=== PATIENT | male | born 1950 | race Caucasian/White ===

== ENCOUNTER → 2024-02-29 11:50 | Outpatient (REF) | payer MEDICARE, OTHER, SELFPAY ==
[2024-02-29 12:35] LABS: % Basophils 1.2 % (0-2); % Eosinophils 6.2 % (0-6); % Immature Granulocytes 0.2 % (0-0.5); % Lymphocytes 16.8 % (20.5-51.1); % Monocytes 7.7 % (1.7-9.3); % Neutrophils 67.9 % (42.2-75.2); Absolute Basophils 0.1 10^3/uL (0-0.2); Absolute Eosinophils 0.5 10^3/uL (0-0.7); Absolute Lymphocytes 1.4 10^3/uL (1.2-3.4); Absolute Monocytes 0.6 10^3/uL (0.1-0.6); Absolute Neutrophils 5.6 10^3/uL (1.4-6.5); Hematocrit 37.5 % (39.0-52.0); Hemoglobin 12.6 g/dL (13.0-18.0); Mean Corp Hgb Conc. 33.6 g/dL (33.0-37.0); Mean Corpuscular Volume 86.4 fL (80.0-94.0); Mean Platelet Volume 11.3 fL (7.4-10.4); Nucleated Red Blood Cells % 0 % (-); Platelet Count 261 10^3/uL (130-400); Red Blood Cell Count 4.34 10^6/uL (4.70-6.10); Red Cell Dist. Width 13.1 % (11.5-14.5); White Blood Cell Count 8.3 10^3/uL (4.8-10.8)
[2024-02-29 12:52] LABS: Urine Albumin Negative (Neg - Trace); Urine Bilirubin Negative (Negative); Urine Character Clear (Clear); Urine Color Yellow; Urine Glucose Negative (Negative); Urine Ketone 2+ (Negative); Urine Leukocyte Negative (Negative); Urine Nitrite Negative (Negative); Urine Occult Blood Negative (Negative); Urine Specific Gravity 1.025 (<1.030); Urine Urobilinogen Negative (Neg - 1+)
[2024-02-29 13:28] LABS: ALT (SGPT) 27 U/L (0-50); AST (SGOT) 35 U/L (17-59); Albumin 4.8 g/dl (3.5-5.0); Alkaline Phosphatase 61 U/L (38-126); Blood Urea Nitrogen 17 mg/dl (9-20); Carbon Dioxide 19 mmol/L (22-30); Chloride 104 mmol/L (98-107); Glucose 93 mg/dl (70-99); HDL Cholesterol 79 mg/dl; LDL Cholesterol, Calculated 81 mg/dl; Potassium 4.4 mmol/L (3.5-5.1); Sodium 134 mmol/L (135-145); Total Bilirubin 0.8 mg/dl (0.2-1.3); Total Cholesterol 175 mg/dl (50-199); Total Protein 7.3 g/dl (6.3-8.2); Triglyceride 77 mg/dl (10-149); Very Low Density Lipoprotein 15 mg/dl (0-30); eGFR > 60.00
[2024-02-29 13:46] LABS: PSA, Total - Screen 0.91 ng/ml (0.0-4.0)
== END ==
LOC: REG 11:50
PROVIDERS: ATTENDING PHYSICIAN Internal Medicine
DX: I10 Essential (primary) hypertension (principal); E78.5 Hyperlipidemia, unspecified; M50.30 Other cervical disc degeneration, unspecified cervical region; N40.0 Benign prostatic hyperplasia without lower urinary tract symptoms; L30.0 Nummular dermatitis; E83.52 Hypercalcemia; Z00.00 Encounter for general adult medical examination without abnormal findings
CPT/HCPCS: 36415; 80053; 80061; 81003; 84443; 85025; G0103

== ENCOUNTER → 2024-03-06 12:07 | Outpatient (REF) | payer MEDICARE, OTHER, SELFPAY ==
[2024-03-06 15:06] LABS: Calcium 10.6 mg/dl (8.4-10.2)
[2024-03-07 08:44] LABS: Intact PTH 60.3 pg/ml (13.6-85.8)
== END ==
LOC: REG 12:07
PROVIDERS: ATTENDING PHYSICIAN Internal Medicine
DX: E83.52 Hypercalcemia (principal)
CPT/HCPCS: 36415; 83970

== ENCOUNTER → 2024-04-12 10:49 | Outpatient (REF) | payer MEDICARE, OTHER, SELFPAY | LOC: HWRAD 10:49 | PROVIDERS: ATTENDING PHYSICIAN Nurse Practitioner Adult Health; FAMILY PHYSICIAN Internal Medicine | DX: R91.8 Other nonspecific abnormal finding of lung field (principal) | CPT/HCPCS: 71250 ==

== ENCOUNTER → 2024-12-22 13:25 | Outpatient (REF) | payer OTHER, SELFPAY | LOC: RAD 13:25 | PROVIDERS: ATTENDING PHYSICIAN Internal Medicine; FAMILY PHYSICIAN Internal Medicine | DX: R10.32 Left lower quadrant pain (principal) | CPT/HCPCS: 76882 ==

== ENCOUNTER → 2024-12-25 13:48 | Outpatient (REF) | payer OTHER, SELFPAY ==
[2024-12-25 15:14] LABS: Blood Urea Nitrogen 23 mg/dl (9-20); Calcium 10.8 mg/dl (8.4-10.2); Carbon Dioxide 25 mmol/L (22-30); Chloride 101 mmol/L (98-107); Glucose 100 mg/dl (70-99); Potassium 4.7 mmol/L (3.5-5.1); Sodium 135 mmol/L (135-145); eGFR > 60.00
== END ==
LOC: REG 13:48
PROVIDERS: ATTENDING PHYSICIAN Internal Medicine
DX: M25.552 Pain in left hip (principal)
CPT/HCPCS: 36415; 80048

== ENCOUNTER → 2025-01-02 08:16 | Outpatient (REF) | payer OTHER, SELFPAY | LOC: RAD 08:16 | PROVIDERS: ATTENDING PHYSICIAN Internal Medicine | DX: R10.32 Left lower quadrant pain (principal) | CPT/HCPCS: 74177; Q9967 ==

== ENCOUNTER 2025-02-01 06:09 | Day surgery (SDC) | payer OTHER, SELFPAY ==
[2025-01-18 14:06] VITALS: BMI 20.8
[2025-02-01] VITALS (13 sets, daily range): BP systolic 108–143; BP diastolic 67–81; BMI 20.8
[2025-02-01] MEDS: NORMOSOL-R/PLASMALYTE-A 1000 IV (06:39)
[2025-02-01] MEDS: TYLENOL 1000 MG PO (06:39)
--- NOTE | 2025-02-01 06:57 | W.SUR.PREOP ---
Pre-Operative Surgical Note
-
I have examined this patient prior to the performance of the scheduled procedure.
The patient's condition is unchanged from the time of the current History and
Physical and the patient is able to undergo the scheduled procedure.
--- NOTE | 2025-02-01 06:57 | HP.FOC2 ---
Focused History & Physical
Chief Complaint
HPI:
Chief Complaint: Left inguinal hernia
HPI / Indication for Planned Procedure: Robotic left inguinal hernia repair with mesh.
Relevant Past Medical History: Negative
Relevant Social History: Negative
Relevant Family History: Negative
Relevant Past Surgical History: Negative
Review of Systems
Review of Pertinent Systems: All Systems Negative
Medication
See Medication form for detailed medications: Yes
Medication List (including Herbals & OTC):
irbesartan 300 mg tablet 300 mg PO QPM 10/08/21
multivitamin 1 ea PO DAILY 10/08/21
sodium sul 1.479 gram-potas ch 0.188 gram-magnes sul 0.225 gram tablet (Sutab) 1.479 gm PO DIRECTED 10/08/21
acetaminophen 325 mg tablet (Tylenol) 650 mg PO Q4H PRN pain 01/25/25
aspirin 162 mg PO DAILY 01/25/25
multivitamin 1 tab PO DAILY 01/25/25
zinc 1 dose PO PRN PRN cold prevention 01/25/25
Medications Reviewed: Yes
Allergies and Reactions
Patient has Allergies: No
Noted Allergies and Reactions:
Allergy/AdvReac Type Severity Reaction Status Date / Time
No Known Allergies Allergy Verified 01/25/25 12:47
Pertinent Physical Exam
All Other Systems: Negative
Head/Neck: Normal
Diagnosis / Assessment
This is a 74-year-old male with a symptomatic left inguinal hernia
Plan / Procedure
Will plan for robotic left inguinal hernia pair with mesh.
Anesthesia/Sedation to be done by Anesthesia Provider: Yes
--- NOTE | 2025-02-01 08:51 | W.IMMPOSTOP ---
Surgical Immed Post Op Note
-
Primary Surgeon: Porfirio Rondon MD
Assisting Surgeon: None
Pre-op Diagnosis: Left inguinal hernia
Post-op Diagnosis: Bilateral inguinal hernia
Procedure Performed: Robotic bilateral inguinal repair with mesh (GERMÁN approach)
Anesthesia Type: General
Specimen / Cultures: None
Estimated Blood Loss: 3 cc
Complications: None
Operative Findings: Bilateral indirect defects noted. No direct or femoral components. Bilateral small cord lipomas resected. Critical view of the MPO was achieved bilaterally. The space was reinforced with a large Bard 3D max uncoated
polypropylene mid weight mesh
--- NOTE | 2025-02-01 08:53 | OR.RPT ---
Operative Report
Operative Report
Patient Name: Eran Dao
: 1950
Date of Operation: 02/01/2025
Preoperative Diagnosis: Reducible Inguinal hernia, [Left]
Postoperative Diagnosis: Reducible inguinal hernias, bilateral
Procedure(s):
Robotic bilateral inguinal Hernia Repair with mesh, (GERMÁN approach)
Surgeon(s):
Dr. Rondon
Scales Inspector(s):
VIVI Ayon
Anesthesia: General
Estimated Blood Loss: 3 cc
Urine Output: None
Drains/Lines/Implants: Large 3D Max Bard mid weight uncoated polypropylene mesh x 2
Specimens: None
Indication for surgery: The patient has a history of groin pain and noted on exam to have a Left inguinal Hernia. Following review of therapeutic options they have elected to undergo a minimally invasive repair.
Operative Findings: Bilateral indirect defects noted. No direct or femoral components. Bilateral small cord lipomas resected. Critical view of the MPO was achieved bilaterally. The space was reinforced with a large Bard 3D max uncoated
polypropylene mid weight mesh
Details of the operation:
The patient was brought to the Operating Room and placed in the supine position with the arms tucked. IV antibiotics were infused and Venodyne stockings placed. Following uneventful induction of general endotracheal anesthesia, an orogastric tube
was placed. The abdomen was prepped and draped in the usual sterile fashion. The abdomen was entered using a Veress technique which required 1 pass(es), pneumoperitoneum to 15 mmHg was obtained without difficulty. An 8mm trochar was passed through
the abdominal wall roughly 20 cm cephalad to the inguinal canal. We then confirmed that no inadvertent injury was made while passing the trocar or Veress needle. We then placed two additional 8 mm ports in the left upper and right upper quadrants.
We then docked the robot with a Prograsper in the left hand port and monopolar scissors in the right. A large left indirect inguinal defect was immediately noted, right smaller indirect defect was also noted, thus we elected to do a bilateral
repair. We then began by creating a flap at the level of the ASIS on the left side laterally working our way medially to the medial umbilical fold. Staying onto the peritoneum we were able to circumferentially dissect around the hernia sac and and
peel it off of the underlying spermatic cord and testicular vessels, taking care to preserve them. Medially we identified the midline pubis as well as Roel's ligament and ensured to dissect 2 cm below the pubic rim over the bladder. After
exposure of the entire myopectineal orifice we identified and reduced: A small sized indirect inguinal hernia, no direct inguinal hernia, no femoral hernia. There was also a small cord lipoma which was resected. We then repeated the exact same
dissection on the right side and found the exact same findings though this defect was slightly smaller than the left side.
We then fixated a large 3D max mesh with a 2-0 Vicryl stitch at coopers medially and superior laterally x 2. The flaps were then closed with a running 2-0 barbed monocryl suture ensuring that the tail was cut flush with the medial fat pad so that
no barbs were exposed. During the closure of the flap an Angiocath was inserted. The area in the flap cavity was then evacuated of air confirming that the mesh was flush and there were no folds.All needles and instruments were then removed and the
robot was undocked. The abdomen was then desufflated, and pneumoperitoneum evacuated. All skin sites were then closed with 4-0 Monocryl followed by Dermabond. Counts were correct and overall, the patient tolerated the procedure well and was taken
to the Recovery Room postoperatively in stable condition.
[place] was the attending physician and performed the procedure with assistance of the PA above. The assistance of VIVI Ayon was required due to the complexity of the procedure. During the procedure Myrna assisted with port placement, instrument
and needle exchanges, and closure of the wound. I was present for all portions of the case, excluding skin closure.
Porfirio Rondon MD
[2025-02-01] MEDS: DILAUDID 0.5 MG IV (09:12)
[2025-02-01] MEDS: DILAUDID 0.25 MG IV (09:41)
--- NOTE | 2025-02-01 09:52 | SUR.PHASEI ---
when patient first arousable, vss, c/o severe abdominal pain - initially could not rate and then 10/10. Medicated initially by [employer] ATTENDANT who reports high drug requirement. sleeps after pain meds - when awake continues to c/o 'a lot of pain' - ' I take
a lot of pain meds' with surgeries. Advised patient to use CPAP with any rest periods at home today and reminded that narcotics will decrease respiratory drive.
[2025-02-01] MEDS: ROXICODONE 5 MG PO (10:29)
== END 2025-02-01 13:15 | disposition home or self-care (01) ==
LOC: SDS 06:09
PROVIDERS: ATTENDING PHYSICIAN Surgery; FAMILY PHYSICIAN Internal Medicine
DX: K40.20 Bilateral inguinal hernia, without obstruction or gangrene, not specified as recurrent (principal)
CPT/HCPCS: 49650; 36415; 93005; C1781

== ENCOUNTER → 2025-02-17 09:58 | Outpatient (REF) | payer OTHER, SELFPAY | LOC: MRI 3T 09:58 | PROVIDERS: ATTENDING PHYSICIAN Anesthesiology; FAMILY PHYSICIAN Internal Medicine | DX: M54.2 Cervicalgia (principal) | CPT/HCPCS: 72141 ==

== ENCOUNTER 2025-06-12 15:24 | Emergency (ER) | payer OTHER, SELFPAY ==
[2025-06-12 15:32] VITALS: BP 114/86
--- NOTE | 2025-06-12 16:43 | ED.GENMED ---
History of Present Illness
General
Chief Complaint: Musculo-Skeletal Complaint
Time Seen by Provider: 06/12/25 15:43
History of Present Illness
History of Present Illness:
74-year-old male presents the emergency department for evaluation persistent elbow pain for several weeks. He states while attempting to open a heavy garage door he fell and struck his elbow on the ground. Pain seems to be intermittent in nature
but worse when attempting to pick things up. He has taken Tylenol and oxycodone without improvement in pain. Has essentially no pain at this time
Past History
Past History
ED Past Medical History: HTN
ED Past Surgical History: Orthopedic (Yehuda knee replacement)
Social History
Tobacco: Former smoker
Alcohol: Daily (3-4 beers)
Personal:
Living: with family
Review of Systems
Review of Systems
Allergies reviewed?: Yes
All Other Systems: ROS reviewed and negative except as documented in HPI and ROS
Phy Exam
Physical Exam
Physical Exam:
GEN: Well appearing, NAD, WDWN
HEENT: Oral mucosa moist, no scleral icterus
Cardiac: Regular rate
Lung: No respiratory distress, no tachypnea
MSK: No gross deformity or injuries. Unrestricted normal range of motion of the left elbow, no pain with resisted flexion or extension at the wrist, no palpable crepitus
Skin: Good color, no pallor or jaundice, no rashes
Neuro: AO x3, moves all extremities freely
Psych: Calm, cooperative
Course
Orders/Labs/Results
Orders:
Orders
06/12/25 15:37
Elbow, 3 view, Left [CR Elbow - Left Min 3 Views ] Urgent
Comment:
Reason For Exam: left elbow pain, injury 3 weeks ago
Vital Signs
Initial and Last Documented VS:
Initial Vital Signs
Temp Pulse Resp BP Pulse Ox
98.1 F 85 16 114/86 97
06/12/25 15:32 06/12/25 15:32 06/12/25 15:32 06/12/25 15:32 06/12/25 15:32
Last Documented Vital Signs
Temp Pulse Resp BP Pulse Ox
98.1 F 85 16 114/86 97
06/12/25 15:32 06/12/25 15:32 06/12/25 15:32 06/12/25 15:32 06/12/25 16:43
MDM/Problems Addressed
MDM/Problems Addressed:
Exam is grossly unremarkable x-ray is negative. Likely joint contusion based on mechanism we will trial NSAIDs and recommend Ortho follow-up
*Pulse Oximetry
SaO2: 97
Oxygen Mode of Delivery: Room air
Patient hypoxic: no
*Critical Care Note
Total Time (30-74mins, 75-104mins- exclusive of procedures): Not Applicable
ED Attending Note
-
Portions of this chart may have been created with voice recognition software.� Occasional wrong word or��sound alike� substitutions may have occurred due to the inherent limitations of voice recognition software.
Discharge Plan
Departure
Patient Disposition: Home (Routine Discharge)
Date of Disposition: 06/12/25
Time of Disposition: 16:43
Patient with high blood pressure during this ER visit?: No
Discharge Problem:
Contusion of elbow, left
Instructions: Contusion (DC)
Prescriptions:
New
celecoxib 200 mg capsule
200 mg PO BID Qty: 14 0RF
No Action
multivitamin 1 EACH tablet
1 ea PO DAILY
irbesartan 300 MG tablet
300 mg PO QPM
Sutab 1.479 GM tablet
1.479 gm PO DIRECTED
acetaminophen [Tylenol] 325 mg Tablet
650 mg PO Q4H PRN (Reason: pain)
aspirin
162 mg PO DAILY
Rx Instructions:
Takes 1/2 of a 162 mg
zinc
1 dose PO PRN PRN (Reason: cold prevention)
Referrals:
Riaz House MD [Active, Orthopedics]
Interventions
Interventions:
*Risk Screen - Suicide Last Done: 06/12/25 15:32
*General Assessment Last Done: 06/12/25 15:32
*Neglect/Abuse Screening Last Done: 06/12/25 15:32
*Nursing Disposition Last Done: 06/12/25 16:59
Discharge Date and Time
Discharge Date/Time: 06/12/25 16:59
Print Language: KINYARWANDA
== END 2025-06-12 16:59 | disposition home or self-care (01) ==
LOC: EMR 15:24
PROVIDERS: EMERGENCY PHYSICIAN Emergency Medicine; FAMILY PHYSICIAN Internal Medicine
DX: S50.02XA Contusion of left elbow, initial encounter (principal); W18.39XA Other fall on same level, initial encounter; Y93.89 Activity, other specified; I10 Essential (primary) hypertension; Z96.653 Presence of artificial knee joint, bilateral; Z87.891 Personal history of nicotine dependence; Z79.82 Long term (current) use of aspirin
CPT/HCPCS: 99283; 73080

== ENCOUNTER 2025-07-25 13:49 | Emergency (ER) | payer OTHER, SELFPAY ==
[2025-07-25 13:51] VITALS: BP 154/114
[2025-07-25 14:13] LABS: Hematocrit 33.6 % (39.0-52.0); Hemoglobin 11.5 g/dL (13.0-18.0); Mean Corp Hgb Conc. 34.2 g/dL (33.0-37.0); Mean Corpuscular Volume 89.8 fL (80.0-94.0); Nucleated Red Blood Cells % 0 % (-); Platelet Count 384 10^3/uL (130-400); Red Cell Dist. Width 13.1 % (11.5-14.5)
[2025-07-25 15:04] LABS: ALT (SGPT) 19 U/L (0-50); AST (SGOT) 24 U/L (17-59); Albumin 4.7 g/dl (3.5-5.0); Alkaline Phosphatase 46 U/L (38-126); Blood Urea Nitrogen 16 mg/dl (9-20); Calcium 11.6 mg/dl (8.4-10.2); Carbon Dioxide 24 mmol/L (22-30); Chloride 105 mmol/L (98-107); Glucose 114 mg/dl (70-99); Potassium 4.9 mmol/L (3.5-5.1); Sodium 136 mmol/L (135-145); Total Protein 7.3 g/dl (6.3-8.2); eGFR > 60.00
--- NOTE | 2025-07-25 15:27 | ED.GENMED ---
History of Present Illness
General
Chief Complaint: Blood Pressure Problem
Time Seen by Provider: 07/25/25 15:27
History of Present Illness
History of Present Illness:
FOCUSED PAST MEDICAL HISTORY
- The patient has a history of high blood pressure
REVIEW OF OLD RECORDS
- I reviewed records, the patient had bilateral inguinal hernia surgery January 2025.
Note:
CHIEF COMPLAINT(S)
Back pain.
HISTORY OF PRESENT ILLNESS
The patient is a 74-year-old male who presents with a chief complaint of back pain that began one and a half days ago. He describes the pain as located behind the left shoulder blade and notes it seems to radiate into the chest. The patient used a
topical lotion containing THC for relief, but it was ineffective. Despite leaning forward or twisting his torso, the pain remains steady and is identified primarily in the lower left thoracic area, slightly off the midline.
Pain did not significantly increase with physical manipulation, and the patient noted it as generally present rather than exacerbated by pressure. He rates the pain as a 7 or 8 on a scale of 1 to 10, with no associated rash or shortness of breath.
Additionally, the patient recounted a recent elbow injury from three weeks prior for which x-rays were performed, and an MRI was suggested. The elbow has largely healed, though some minor lingering symptoms remain.
The patient recorded elevated blood pressure readings today, with the highest being 191/110 mmHg, despite being on irbesartan 300 mg daily for the past 10 years, which usually maintains his blood pressure at 124/80 mmHg. He expressed concern about
this elevation potentially being related to his current discomfort.
PAST MEDICAL AND SURIGICAL HISTORY
Notable for an elbow injury three weeks ago, managed initially with an x-ray and recommendation for an MRI.
ADDITIONAL HISTORY OBTAINED FROM SOURCES OTHER THAN THE PATIENT
Per the patient�s spouse, the patient has not been well for the past four months, has lost significant weight, and experiences nausea, particularly when lying down at night.
CHRONIC MEDICAL CONDITIONS SIGNIFICANTLY AFFECTING CARE
Hypertension managed with irbesartan for the past 10 years.
SOCIAL HISTORY
The patient mentioned the use of THC lotion for pain management.
MEDICATIONS
- Irbesartan 300 mg once daily.
- Oxycodone was prescribed for elbow pain but used minimally.
- Aspirin: Two tablets taken at 9 AM today.
REVIEW OF SYSTEMS
- Cardiovascular: Elevated blood pressure noted by patient.
- Musculoskeletal: Persistent pain in the lower left thoracic area.
- Gastrointestinal: Occasional nausea, particularly when supine at night.
PHYSICAL EXAM
General: Alert, no acute distress. Hypertensive with pressures of 150s over 100s
Skin: Warm, dry, no rashes.
Head: Normocephalic, atraumatic.
Neck: Supple, trachea midline.
Eyes, Ears, Nose, Mouth, and Throat: Oral mucosa moist.
Cardiovascular: Normal peripheral perfusion, No edema.
Respiratory: Respirations are non-labored.
Gastrointestinal: Abdomen nondistended.
Back: Normal range of motion, Normal alignment. There is some mild tenderness in the lower thoracic region just left of midline along the paraspinal musculature with no significant bony tenderness
Musculoskeletal: Normal ROM, normal strength; no scapular tenderness no abdominal tenderness
Neurological: Alert and oriented to person, place, time, and situation, No focal neurological deficit observed.
Psychiatric: Cooperative, appropriate mood & affect.
PROBLEM LIST
Acute:
- Back pain.
- Elevated blood pressure.
- Nausea, particularly nocturnal.
Chronic:
- Hypertension managed with irbesartan.
PLAN
1. Obtain a computed tomography scan of the chest to rule out any serious underlying conditions contributing to the chest and back pain.
2. Order Toradol as an anti-inflammatory medication to address musculoskeletal pain.
3. Perform blood tests, including a troponin test, to assess cardiac parameters.
4. Continue monitoring blood pressure, given the recent elevation.
5. Evaluate potential gastrointestinal concerns, including reconsidering imaging for the abdomen if warranted.
DIFFERENTIAL DIAGNOSIS
The Differential Diagnosis includes, in no particular order and is not limited to:
1. Muscular strain.
2. Costochondritis.
3. Acute coronary syndrome.
4. Aortic dissection.
5. Gastroesophageal reflux disease.
6. Peptic ulcer disease.
7. Hypertensive crisis.
8. Pneumonia.
9. Pancreatitis.
10. Pulmonary embolism.
RADIOLOGY
- CTA chest abdomen pelvis obtained�no acute abnormality, no dissection
EKG
- Sinus 67, no acute no acute ST abnormality, no change from 01/18/2025
LABS
- White count normal, hemoglobin 11.5 which is just slightly lower than baseline, chemistries unremarkable however calcium slightly high at 11.6 (has frequently been on the higher side)
UPDATE
-SUMMARY OF ENCOUNTER
The patient, a 74-year-old male, presented to the emergency department with back pain thought to be muscular in origin. A computed tomography (CT) scan was conducted, focusing on the aorta to rule out aortic dissection, which has been excluded as a
cause of the pain. The scan also included the abdominal area with no abnormalities or malignancies identified. The patient has a history of chronic neck pain and had been taking oxycodone, but reports he no longer has an active prescription. After
assessing the patients current pain, it was determined to be muscular, potentially due to muscle spasm.
DISPOSITION
Discharge.
ASSESSMENT
The back pain is suspected to be a musculoskeletal issue, potentially due to muscle spasm.
PLAN
The plan includes discharging the patient with a short course of oxycodone for pain management and advising on muscle pain management strategies.
INDEPENDENT REVIEW OF LABS AND INTERPRETATION OF TESTS
My independent review of cardiac blood work is normal.
My independent interpretation of the chest and abdomen CT scan shows no evidence of aortic dissection or abdominal malignancies.
FOLLOW-UP INSTRUCTIONS
The patient should follow up with his primary care physician or pain specialist regarding ongoing management of his neck and back pain.
MEDICATION RECONCILIATION
A short course of oxycodone was prescribed and sent to [facility] in [facility] for pain management.
MEDICAL DECISION MAKING
-Complexity of Data Reviewed: Chronic conditions affecting care include hypertension. Differential diagnosis considerations included muscular strain, costochondritis, and potential cardiac issues.
-Data:
Category 1
My independent interpretation of the CT scan indicates no aortic dissection or abnormal abdominal findings.
Category 2
Clinical information was obtained from the patients report of symptoms and use of oxycodone for prior neck issues.
-Risk:
Prescription medication was prescribed. Consideration for a potential need for ongoing pain management was evaluated.
DIAGNOSIS
Acute posterior thoracic muscle spasm
Chronic neck pain (ICD-10: M54.2)
Essential hypertension (ICD-10: I10)
Past History
Past History
ED Past Medical History: HTN
ED Past Surgical History: Orthopedic (Yehuda knee replacement)
Social History
Tobacco: Former smoker
Alcohol: Daily (3-4 beers)
Personal:
Living: with family
Phy Exam
Physical Exam
Physical Exam:
See HPI
Course
Orders/Labs/Results
Orders:
Orders
07/25/25 13:54
Electrocardiogram (*1) Urgent
Reason for Study: Vertigo / Dizzy
07/25/25 13:55
EKG- Treatment ONCE
07/25/25 14:00
CMP [Comprehensive Metabolic Panel] Urgent
Complete Blood Count/With Diff Urgent
07/25/25 15:40
CT Chest/abd/pelvis Angio W/wo Urgent
Comment:
Reason For Exam: L back and chest pain; some abd pain / nausea HTN
0.9% Sodium Chloride 500 ml [Nss] 500 ml IV BOLUS
Ketorolac [Toradol] 15 mg IV NOW STA
07/25/25 16:13
Troponin I Urgent
Abnormal Lab Results
07/25/25
14:00
RBC 3.74 L 10^6/uL
(4.70-6.10)
Hgb 11.5 L g/dL
(13.0-18.0)
Hct 33.6 L %
(39.0-52.0)
Absolute Lymphs (auto) 1.0 L 10^3/uL
(1.2-3.4)
Lymphocytes % 15.7 L %
(20.5-51.1)
Glucose 114 H mg/dl
(70-99)
Calcium 11.6 H mg/dl
(8.4-10.2)
07/25/25 14:00
07/25/25 14:00
Vital Signs
Initial and Last Documented VS:
Initial Vital Signs
Temp Pulse Resp BP Pulse Ox
36.8 C 105 20 154/114 99
07/25/25 13:51 07/25/25 13:51 07/25/25 13:51 07/25/25 13:51 07/25/25 13:51
Last Documented Vital Signs
Temp Pulse Resp BP Pulse Ox
36.8 C 60 18 157/90 100
07/25/25 13:51 07/25/25 18:00 07/25/25 16:00 07/25/25 18:00 07/25/25 18:00
*Pulse Oximetry
SaO2: 99
Oxygen Mode of Delivery: Room air
Patient hypoxic: no
*Critical Care Note
Total Time (30-74mins, 75-104mins- exclusive of procedures): Not Applicable
ED Attending Note
-
Portions of this chart may have been created with voice recognition software.� Occasional wrong word or��sound alike� substitutions may have occurred due to the inherent limitations of voice recognition software.
Discharge Plan
Departure
Patient Disposition: Home (Routine Discharge)
Date of Disposition: 07/25/25
Time of Disposition: 18:33
Patient with high blood pressure during this ER visit?: Yes
Discharge Problem:
Acute left-sided thoracic back pain
Instructions: Muscle spasm - ED (DC), BLOOD PRESSURE
Prescriptions:
New
oxycodone 5 mg tablet
5 mg PO BID PRN (Reason: Pain) Qty: 12 0RF
No Action
multivitamin 1 EACH tablet
1 ea PO DAILY
irbesartan 300 MG tablet
300 mg PO QPM
Sutab 1.479 GM tablet
1.479 gm PO DIRECTED
acetaminophen [Tylenol] 325 mg Tablet
650 mg PO Q4H PRN (Reason: pain)
aspirin
162 mg PO DAILY
Rx Instructions:
Takes 1/2 of a 162 mg
zinc
1 dose PO PRN PRN (Reason: cold prevention)
celecoxib 200 mg capsule
200 mg PO BID Qty: 14 0RF
Referrals:
Alcon Hernandez MD [Family Provider, Internal Medicine]
Activity Restrictions/Additional Instructions:
I reviewed the prescription drug monitoring program website which indicates that you had a 30-day supply of oxycodone filled on July 02. The pharmacy may not fill the narcotic that I sent to your pharmacy. Cardiac blood work shows no sign of
heart attack. Basic blood work is relatively unremarkable. CAT scan of the chest, abdomen pelvis, showed no acute abnormality including no sign of aortic dissection. Follow-up with your doctors.
Interventions
Interventions:
*Risk Screen - Suicide Last Done: 07/25/25 13:51
*General Assessment Last Done: 07/25/25 13:51
*Neglect/Abuse Screening Last Done: 07/25/25 16:06
*ED- Fall Risk Assessment Last Done: 07/25/25 16:06
*ED COVID-19 Vaccine History Last Done: 07/25/25 16:06
ED- Cardiac Assessment Last Done: 07/25/25 16:06
ED- Neurological Assessment Last Done: 07/25/25 16:06
ED- Pulmonary Assessment Last Done: 07/25/25 16:06
Discharge Date and Time
Print Language: NIGERIEN
[2025-07-25 16:00] VITALS: BP 159/88
[2025-07-25 16:01] VITALS: BMI 17.8
[2025-07-25 16:04] VITALS: BP 159/88
[2025-07-25] MEDS: NSS 500 IV (16:15)
[2025-07-25] MEDS: TORADOL 15 MG IV (16:17)
[2025-07-25 16:52] LABS: Troponin I < 0.012 ng/ml
[2025-07-25 17:00] VITALS: BP 141/97
[2025-07-25 18:00] VITALS: BP 157/90
== END 2025-07-25 18:48 | disposition home or self-care (01) ==
LOC: EMR 13:49
PROVIDERS: Emergency Medicine; EMERGENCY PHYSICIAN Emergency Medicine; FAMILY PHYSICIAN Internal Medicine
DX: M54.6 Pain in thoracic spine (principal); I10 Essential (primary) hypertension; M54.2 Cervicalgia; G89.29 Other chronic pain; Z79.82 Long term (current) use of aspirin; Z87.891 Personal history of nicotine dependence; Z96.653 Presence of artificial knee joint, bilateral
CPT/HCPCS: 99284; 96374; 96361 ×2; 71275; 74174; 80053; 84484; 85025; 93005; Q9967

== ENCOUNTER 2025-08-31 17:03 | Observation (INO) | payer OTHER, SELFPAY ==
[2025-08-31 11:18] VITALS: BP 168/94
--- NOTE | 2025-08-31 12:05 | ED.GENMED ---
History of Present Illness
General
Chief Complaint: Abdominal Symptoms
Source: patient, records and previous radiology exam
Exam Limitations: none
Time Seen by Provider: 08/31/25 11:38
Nursing documentation reviewed up to this point in time: agreed with
History of Present Illness
History of Present Illness:
75-year-old male presents with fatigue and nausea diarrhea--diarrhea started a day or 2 ago he has had 40 pound weight loss over the past 6 months
No blood in his stool, no sick contacts no foreign travel history of high blood pressure in the ER a few weeks ago apparently had a fall CAT scan of his abdomen pelvis tells me he gets colonoscopies every year,
Past History
Past History
ED Past Medical History: HTN; Negative Arrthythmia, CVA or NIDDM
ED Past Surgical History: Orthopedic (Yehuda knee replacement) and Other (Inguinal hernia repair)
Social History
Tobacco: Former smoker
Alcohol: Daily (3-4 beers)
Drug: None
Personal:
Living: with family
Employment: Retired
Phy Exam
Physical Exam
Physical Exam:
Physical Exam
General: no apparent distress, not acutely ill
Neck: Lips are dry
Heart: s1/s2 regular rate and rhythm, no murmur. equal radial pulses.
Lungs: no acute respiratory distress. clear bilaterally
Abdomen: Soft mild diffuse
Neuro: alert and oriented. no focal neurological deficits
Skin: no rash
Psychiatric: well kept. interactive and cooperative
Extremities: no edema.
Course
Orders/Labs/Results
Orders:
Orders
08/31/25 11:38
Electrocardiogram (*1) Stat
Reason for Study: Abdominal Pain
Cardiac Monitoring- Treatment ONCE
EKG- Treatment ONCE
08/31/25 12:13
Complete Blood Count/With Diff Urgent
Comprehensive Metabolic Panel Urgent
TSH Urgent
Urinalysis Reflex To Culture Urgent
Date Specimen was Collected: 08/31/25
Time Specimen was Collected: 11:47
Urine Microscopic Reflex Cult Urgent
08/31/25 13:25
CT Abd/pelvis W Iv Cont Urgent
Comment:
Reason For Exam: pain dialhrea weight loss n
HYDROmorphone [Dilaudid] 0.5 mg IV NOW STA
08/31/25 Dinner
Clear Liquid
At Your Request: Full Participation
Does patient need a safe tray?: No
08/31/25 16:25
Admit/Transfer Patient As Directed
Co-Sign Provider:
Level of Care: Observation services
Assign to:: Medical/Surgical
Physician / Group: david delong
Diagnosis: acute colitis
Code Status As Directed
Resuscitation Status: Full Code
LevoFLOXacin 500 MG/100 ML [Levaquin] 500 mg in 100 ml IV NOW
08/31/25 16:28
PRN Pain Medication Management As Directed
May give lesser potent ordered pain med per pt: Yes
preference::
Protocol:: Medication orders for pain may be administered in a
manner that supports deferring to patient preference
when the pt is:
- Requesting an ordered lesser potent pain medication.
Least to most potent pain medications are defined
as: acetaminophen < NSAID < tramadol < opioids
(morphine, oxycodone, hydromorphone).
- Requesting a lesser dose of the same medication IF
ORDERED.
- Requesting a less intrusive route of administration
if both routes are prescribed by the provider (PO <
IV).
08/31/25 18:43
Acetaminophen [Tylenol] 650 mg PO Q4HPRN PRN
Enoxaparin Sodium [Lovenox] 40 mg SC QPM
HYDROmorphone [Dilaudid] 0.5 mg IV Q4HPRN PRN
Ondansetron Injectable [Zofran] 4 mg IV Q6HPRN PRN
08/31/25 18:43
Activity As Directed
Activity Level: As Tolerated
Intake/ Output As Directed
Frequency: Per unit guidelines
Vital Signs As Directed
Frequency: Per unit guidelines
Pt Eval And Treat Routine
Activity Level: As Tolerated
DX Deep Vein Thrombosis Video Routine
08/31/25 20:00
MetroNIDAZOLE 500 MG/100 ML [Flagyl 500 mg] 100 ml IV Q8H
09/01/25 07:49
Complete Blood Count/With Diff IN AM
Comprehensive Metabolic Panel IN AM
09/01/25 16:00
LevoFLOXacin 500 MG/100 ML [Levaquin] 500 mg in 100 ml IV Q24H
09/02/25 07:22
Complete Blood Count/With Diff IN AM
Comprehensive Metabolic Panel IN AM
Abnormal Lab Results
08/31/25
12:13
RBC 3.38 L 10^6/uL
(4.70-6.10)
Hgb 10.1 L g/dL
(13.0-18.0)
Hct 29.5 L %
(39.0-52.0)
Plt Count 405 H 10^3/uL
(130-400)
Sodium 131 L mmol/L
(135-145)
Calcium 10.4 H mg/dl
(8.4-10.2)
Urine Ketones 1+ A
(Negative)
Urine Albumin (Reflex) 1+ A
(Neg - Trace)
08/31/25 12:13
08/31/25 12:13
Vital Signs
Initial and Last Documented VS:
Initial Vital Signs
Temp Pulse Resp BP Pulse Ox
98.1 F 69 18 168/94 98
08/31/25 11:18 08/31/25 11:18 08/31/25 11:18 08/31/25 11:18 08/31/25 11:18
Last Documented Vital Signs
Temp Pulse Resp BP Pulse Ox
97.5 F 138 16 159/112 100
09/02/25 15:00 09/02/25 15:00 09/02/25 15:00 09/02/25 15:00 09/02/25 15:00
MDM/Problems Addressed
Differential Diagnosis Includes:
Enteritis infectious diarrhea C. difficile colitis
MDM/Problems Addressed:
Abdominal pain diarrhea weight loss
Chronic conditions affecting care:
Abdominal pain diarrhea
Acute Exacerbation and/or Progression of Chronic Illness:
Abdominal pain diarrhea
*Pulse Oximetry
SaO2: 98
Oxygen Mode of Delivery: Room air
Patient hypoxic: no
*Critical Care Note
Total Time (30-74mins, 75-104mins- exclusive of procedures): Not Applicable
Update Note
Update Note:
1:30 PM update labs noted patient still with pain feels like he has been punched in the abdomen having loose stools, not feeling any better with fluids will start analgesics, check CT scan stool studies are pending
ED Attending Note
-
Portions of this chart may have been created with voice recognition software.� Occasional wrong word or��sound alike� substitutions may have occurred due to the inherent limitations of voice recognition software.
Discharge Plan
Departure
Patient Disposition: Admit
Date of Disposition: 08/31/25
Time of Disposition: 15:55
Presentation/result/management discussed w/ accepting MD/DO: Hospitalist
Discharge Problem:
Colitis
Interventions
Interventions:
*Risk Screen - Suicide Last Done: 08/31/25 19:00
*General Assessment Last Done: 08/31/25 11:27
*ED COVID-19 Vaccine History Last Done: 08/31/25 19:00
IO-Chse[facility]-Zoaymrul[facility] Assessment Last Done: 08/31/25 11:27
[2025-08-31 12:30] LABS: Hematocrit 29.5 % (39.0-52.0); Hemoglobin 10.1 g/dL (13.0-18.0); Mean Corp Hgb Conc. 34.2 g/dL (33.0-37.0); Mean Corpuscular Volume 87.3 fL (80.0-94.0); Nucleated Red Blood Cells % 0 % (-); Platelet Count 405 10^3/uL (130-400); Red Cell Dist. Width 12.4 % (11.5-14.5)
[2025-08-31 12:44] LABS: ALT (SGPT) 21 U/L (0-50); AST (SGOT) 20 U/L (17-59); Albumin 4.0 g/dl (3.5-5.0); Alkaline Phosphatase 44 U/L (38-126); Blood Urea Nitrogen 16 mg/dl (9-20); Calcium 10.4 mg/dl (8.4-10.2); Carbon Dioxide 22 mmol/L (22-30); Chloride 106 mmol/L (98-107); Glucose 93 mg/dl (70-99); Potassium 4.1 mmol/L (3.5-5.1); Sodium 131 mmol/L (135-145); Total Protein 6.4 g/dl (6.3-8.2); eGFR > 60.00
[2025-08-31 13:20] LABS: Urine Character Clear (Clear)
[2025-08-31 13:41] LABS: Urine Squamous Cell 0-2 /LPF (Few)
[2025-08-31 13:42] LABS: Urine Red Blood Cell 0-2 /HPF (0-2); Urine White Cell 0-2 /HPF (0-5)
[2025-08-31] MEDS: DILAUDID 0.5 MG IV ×2 (13:52→19:27)
[2025-08-31 13:55] LABS: TSH 0.81 uIU/ml (0.47-4.68)
[2025-08-31 14:27] VITALS: BP 142/78
--- NOTE | 2025-08-31 16:01 | W.PN.UPDATE ---
Update Note
Progress Note Update
This note serves as an addendum to the H&P by blast furnace tender Roque Vargas
HPI�
75M Former smoker, daily ETOH, HX HTN ( Irbesartan) seen ast ER
- pw acute nausea and diarrhea
- diarrhea started a day or 2 ago he has had 40 pound weight loss over the past 6 months
- denied blood in his stool
- no sick contacts
- no recent foreign travel
- No FHX on IBD
PHX; see above
Relevant VS
Temp Pulse Resp BP Pulse Ox
98.1 F 72 20 142/78 99
08/31/25 11:18 08/31/25 14:27 08/31/25 14:27 08/31/25 14:27 08/31/25 14:27
PE
Gen: NAD
HEENT:dry lips and oral mucosa
Neck: supple
Lungs: CTA
Cor: RRR S 1S2
Abdomen:�Soft but diffuse mild tenderness
TYPIST: AAO3, NFND
MS: no edema
Abnormal Labs
08/31/25
12:13
RBC 3.38 L
Hgb 10.1 L
Hct 29.5 L
Plt Count 405 H
Sodium 131 L
Calcium 10.4 H
Urine Ketones 1+ A
Urine Albumin (Reflex) 1+ A
CT Abd/pelvis W Iv Cont
- Mild to moderate wall thickening diffusely involving the colon, compatible with colitis.
This is most likely infectious colitis. Bleeding differential consideration of inflammatory bowel disease.
- Mildly dilated small bowel loops in the left upper quadrant, likely mild focal ileus.
- No evidence of free intraperitoneal air.
- The appendix appears normal.
- Bilateral central parapelvic renal cysts.
NO Prior HX hospitalist admission:
ASSESSMENT & PLAN
Pending Rx reconciliation
Acute Colitis DDX: Infection, IBD
- stool for CX, C Diff, Noro virus
- check Fecal Calprotectin
- IVF
- PRN analgesics
- PRN ant emetics
- Empiric IV LVQ and Flagyl
- No longer on Celecoxib
- GI consult
Benign HTN
- c/w Irbesartan - hold if SBP < 120
DVT Px: SCD
Full code
OBS MS
--- NOTE | 2025-08-31 16:02 | HPS.HSE ---
Family Physician
-
Family Physician: Alcon Hernandez
Chief Complaint
-
Nausea, diarrhea, mid abdominal pain
History of Present Illness
75-year-old male from home who states on Wednesday in the afternoon while at work he developed nausea then loose stool he reports Wednesday 2 days later he had liquid stool mixed with formed stool and pain across his mid abdomen along with chills but
no fever. He reports history of constipation over the past 6 months using occasional MiraLAX however has not used that in the past week. He also reports a weight loss unintentional of 40 pounds over the past 6 months however he states he did
decrease his alcohol consumption on the weekends from 4-6 beers down to 2 beers daily along with weekly 2 beers daily. His last drink was 7 days ago. He also complains of insomnia over the past 4 days which he thinks is impairing his memory to
recall events.' He reports father and paternal grandfather history of' stomach cancer' patient is unsure whether gastric or colon. He has history of colonic polyps believes he had colonoscopy 1 year ago with benign polypectomy. He denies fever,
chills, headache, sore throat, chest pain, palpitations, cough, shortness of breath.
Past medical history hypertension, ex-smoker, sleep apnea/CPAP, hemorrhoids, hepatitis C 2002 treated with interferon, osteoarthritis
Medical History
Past Medical History
Past Medical History: Reports Other
Additional Past Medical History:
Hypertension
Ex-smoker
Sleep apnea/CPAP setting 7 nasal
Hemorrhoids
Hepatitis C 2002 treated with interferon
Osteoarthritis
Past Surgical History: Reports Other
Additional Past Surgical History:
Bilateral knee meniscus repair
With some teeth extraction
Right shoulder rotator cuff repair 2017
Social History
Tobacco: Former Smoker (Quit 40 years ago)
Alcohol: Daily (2 beers)
Personal:
Living: With Family
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
Family History
Family History: Other (Paternal father and grandfather stomach cancer unsure gastric or colon)
Allergies / Home Medications
Allergies reflects when Allergies were last updated in [facility].
Home Medications with original date entered in [facility]
Allergy/Medication List:
Allergies
Allergy/AdvReac Type Severity Reaction Status Date / Time
No Known Allergies Allergy Verified 07/25/25 16:01
Home Medications
irbesartan 300 mg tablet 300 mg PO QPM 10/08/21
multivitamin 1 ea PO DAILY 10/08/21
aspirin 162 mg PO DAILY 01/25/25
Review of Systems
-
History Source: Patient
A 12 point ROS was completed and negative except as noted: Yes
Constitutional: Reports Weight Loss (40 pounds past 6 months) and Chills; Denies Fatigue
EENT: Denies Sore Throat or Runny Nose
Respiratory: Denies Cough or Trouble Breathing
Cardiac: Denies Chest Pain, Diaphoresis, Palpitations or Syncope
Abdomen/GI: Reports Abdominal Pain (Across mid abdomen), Nausea and Diarrhea; Denies Vomiting, Constipated, Bloody Stools or Black Stools
: Denies Dysuria, Frequency, Flank Pain, Incontinence or Difficulty Voiding
Musculoskeletal: Denies Joint Pain or Edema
Skin: Denies Itching or Rash
Neurological: Denies Dizzy or Headache
Endocrine: Reports No Symptoms
Hematologic/Lymphatic: Reports No Symptoms
Psych: Reports Calm
Physical Exam
Vital Signs
Vital Signs
Temp Pulse Resp BP Pulse Ox
98.1 F 72 20 142/78 99
08/31/25 11:18 08/31/25 14:27 08/31/25 14:27 08/31/25 14:27 08/31/25 14:27
Physical Exam
General: Conversant and Chills; No Fever
HEENT: NormoCephalic, Anicteric, Moist mucous membranes, PERRLA, [place] Conjunctivae and No Ptosis
Respiratory: Clear; No Wheezes, Rales or Rhonchi
Cardiac: S1/S2 and Regular Rhythm; No Murmur, Rub, Gallop or Peripheral Edema
GI: Soft, Non Distended, Normal Bowel Sounds, Tender (Across mid abdomen) and No Hepatosplenomegaly
Genito-urinary: Deferred by me
Musculoskeletal: No Clubbing, No Cyanosis and No Edema
Skin: Warm and Dry; No Rash or Jaundice
Neuro: AO x 3, No Motor Deficits, Nonfocal/grossly intact, Cranial Nerves Intact and No Sensory Deficits; No Slurred Speech, Facial Droop, Tremors or Sedated
Psych: Calm
Laboratory Results
-
08/31/25 12:13
08/31/25 12:13
Laboratory Results
Total Bilirubin 0.8 mg/dl (0.2-1.3) 08/31/25 12:13
AST 20 U/L (17-59) 08/31/25 12:13
ALT 21 U/L (0-50) 08/31/25 12:13
Alkaline Phosphatase 44 U/L (38-126) 08/31/25 12:13
Data Reviewed
-
CT Scan: Report Reviewed by me
Lab Data: Labs Reviewed by me
Impression/Plan
-
Impression/plan:
Admit to [facility]
#Acute colitis
- Check fecal calprotectin
Check norovirus
-IV Levaquin, IV Flagyl
- Consult GI
- Clear liquids
- IV Zofran IV Dilaudid
- Follow CBC, CMP
CT abdomen pelvis: 1. Mild to moderate wall thickening diffusely involving the colon, compatible with colitis. This is most likely infectious colitis. Bleeding differential consideration of inflammatory bowel disease.
2. Mildly dilated small bowel loops in the left upper quadrant, likely mild focal ileus.
3. No evidence of free intraperitoneal air.
4. The appendix appears normal.
5. Bilateral central parapelvic renal cysts.
#Acute on chronic anemia�normocytic
Hgb 10.1 baseline appears 11.5
#Alcohol use
-Drinks daily 2 beers last drink was 7 days ago was drinking prior 4-6 beers on weekend but decreased past 6 months to 2 beers
#Hypertension
BP 142/78
-Continue irbesartan
Patient reports takes aspirin 162 mg daily prophylactically
Ex-smoker
Sleep apnea/CPAP
- CPAP setting 7
#Hemorrhoids
#Hepatitis C 2002
- Treated with interferon
#Osteoarthritis
DVT prophylaxis
Subcu Lovenox
Full code
[2025-08-31] MEDS: LEVAQUIN 100 IV (17:17)
[2025-08-31 18:21] VITALS: BP 140/72
[2025-08-31 18:45] VITALS: BMI 17.7
[2025-08-31 18:46] VITALS: BP 136/80
[2025-08-31] MEDS: FLAGYL 500 MG 100 IV (19:30)
[2025-08-31] MEDS: LOVENOX 40 MG SC (19:35)
[2025-08-31] MEDS: TYLENOL 650 MG PO (22:43)
[2025-08-31 23:00] VITALS: BP 129/73
[2025-08-31 23:50] VITALS: PULSE 75
[2025-09-01] MEDS: DILAUDID 0.5 MG IV ×2 (00:36→07:48)
[2025-09-01] MEDS: FLAGYL 500 MG 100 IV ×3 (03:52→20:30)
[2025-09-01] MEDS: TYLENOL 650 MG PO ×2 (03:55→11:11)
[2025-09-01 07:42] VITALS: BP 152/98
[2025-09-01 08:57] LABS: Hematocrit 28.0 % (39.0-52.0); Hemoglobin 9.3 g/dL (13.0-18.0); Mean Corp Hgb Conc. 33.2 g/dL (33.0-37.0); Mean Corpuscular Volume 88.3 fL (80.0-94.0); Nucleated Red Blood Cells % 0 % (-); Platelet Count 375 10^3/uL (130-400); Red Cell Dist. Width 12.4 % (11.5-14.5)
[2025-09-01 09:26] LABS: ALT (SGPT) 18 U/L (0-50); AST (SGOT) 18 U/L (17-59); Albumin 3.5 g/dl (3.5-5.0); Alkaline Phosphatase 37 U/L (38-126); Blood Urea Nitrogen 12 mg/dl (9-20); Calcium 10.1 mg/dl (8.4-10.2); Carbon Dioxide 22 mmol/L (22-30); Chloride 105 mmol/L (98-107); Estimated Creatinine Clearance 52 ml/min; Glucose 93 mg/dl (70-99); Potassium 3.9 mmol/L (3.5-5.1); Sodium 130 mmol/L (135-145); Total Protein 5.8 g/dl (6.3-8.2); eGFR > 60.00
[2025-09-01] MEDS: ZOFRAN 4 MG IV (09:44)
--- NOTE | 2025-09-01 10:05 | PTOTSP ---
Chart reviewed. patient received in bed. Patient educated on role of PT within the hospital. Patient asked to participate in session. Notes that he doesn't need PT and that he has been getting up and going to the bathroom independently. Patient
declines need to do stairs at home as there is just a threshold to get into the home. 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 Patient educated to maintain as normal functional movement as possible - getting up and
sitting in chair, walking to bathroom, and walking in hallway as his symptoms allow to maintain functional abilities. At this time, there are no needs for skilled PT in house. Educated patient that if his physical condition changes and he begins
to not be able to perform activities, to let the nurse know for reconsult. At this time, will sign off.
--- NOTE | 2025-09-01 14:26 | CON.GI ---
Consultation
-
Date/Time Consultation Requested: 09/01/25 8am
Date/Time Consultation Performed: 09/01/25 2:27pm
Requesting Provider: Eli Hearn
Performing Provider: Grady Bautista
Reason for Consultation: Colitis
Medical History
Chief Complaint / HPI
Chief Complaint: Colitis
History of Present Illness:
75yo male presents with lower abd pain and diarrhea for 3 days. Denies any recent travel, eating out. Was feeling well prior to this episode. Last colonoscopy in 2020 showed 20mm polyp in cecum removed with EMR path adenoma. He was recommended
to repeat in 6 months. Denies rectal bleeding. Feeling better since admission
Past Medical History
Past Medical History: Other (sleep apnea. Hepatitis C treated with IFN reportedly eradicated)
Past Surgical History: Orthopedic
Social History
Tobacco: Former Smoker
Alcohol: Daily
Family History
Family History: Reviewed & Not Pertinent
Allergies / Home Medications
Allergy/AdvReac Type Severity Reaction Status Date / Time
No Known Allergies Allergy Verified 07/25/25 16:01
�Medication �Instructions �Recorded
irbesartan 300 mg tablet 300 mg PO QPM 10/08/21
multivitamin 1 ea PO DAILY 10/08/21
aspirin 162 mg PO DAILY 01/25/25
Review of Systems
-
All other systems: A 12 pt ROS was Negative except as stated above in HPI
Vital Signs
Temp Pulse Resp BP Pulse Ox
98.1 F 72 18 152/98 100
09/01/25 07:42 09/01/25 07:42 09/01/25 07:42 09/01/25 07:42 09/01/25 07:42
Physical Exam
Exam
General: No Apparent Distress
HEENT: Normocephalic and Atraumatic
Respiratory: Non Labored Respirations
GI: Soft, Non Tender and Non Distended
Musculoskeletal: No Edema
Results
WBC 4.9 10^3/uL (4.8-10.8) 09/01/25 07:49
Hgb 9.3 g/dL (13.0-18.0) L 09/01/25 07:49
Hct 28.0 % (39.0-52.0) L 09/01/25 07:49
MCV 88.3 fL (80.0-94.0) 09/01/25 07:49
Plt Count 375 10^3/uL (130-400) 09/01/25 07:49
Absolute Neuts (auto) 3.1 10^3/uL (1.4-6.5) 09/01/25 07:49
Sodium 130 mmol/L (135-145) L 09/01/25 07:49
Potassium 3.9 mmol/L (3.5-5.1) 09/01/25 07:49
Chloride 105 mmol/L (98-107) 09/01/25 07:49
Carbon Dioxide 22 mmol/L (22-30) 09/01/25 07:49
BUN 12 mg/dl (9-20) 09/01/25 07:49
Creatinine 1.0 mg/dL (0.7-1.3) 09/01/25 07:49
Calcium 10.1 mg/dl (8.4-10.2) 09/01/25 07:49
Total Bilirubin 0.8 mg/dl (0.2-1.3) 09/01/25 07:49
AST 18 U/L (17-59) 09/01/25 07:49
ALT 18 U/L (0-50) 09/01/25 07:49
Alkaline Phosphatase 37 U/L (38-126) L 09/01/25 07:49
Diagnostic Image Results:
Prior GI Procedures:
EGD:
Colonoscopy:
Assessment / Plan
-
Summary: 75yo male presents with lower abd pain and diarrhea x [address] shows pancolitis. Had colonoscopy in 2020 removed 2cm adenoma w EMR, rec repeat in 6 months.
Impression:
Acute colitis, likely infectious
Hx large adenoma removed EMR 2020
Hep C treated w IFN years ago, reportedly eradicated
Recommendations:
Doing well and feeling better since admission
Check stool c diff, culture
Cont levaquin/flagyl
OK to advance to low residue diet for dinner
Needs colonoscopy in 2 months after d/c for f/u and polyp surveillance after EMR large adenoma 2020
-
-
Thank you for consultation and allowing me to participate in the patient's care. Please call the nutrition services assistant GI physician during the after hours with any questions or concerns.
--- NOTE | 2025-09-01 14:39 | CM ---
Met with patient at bedside
GALLAGHER form explained; form signed
Lives w/ ; Rancher w/ basement
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
DME: CPAP
will transport
Plan: Discharge to home tomorrow if he tolerates diet; no needs
[2025-09-01] MEDS: LEVAQUIN 100 IV (15:27)
[2025-09-01 15:28] VITALS: BP 126/81
[2025-09-01] MEDS: PERCOCET 5/325 1 TABLET PO ×2 (16:29→20:31)
--- NOTE | 2025-09-01 17:22 | W.PN.HOSP.TC ---
Addendum entered and electronically signed by Eli Hearn MD 09/01/25 18:58:
I saw and evaluated the patient independently. I reviewed and discussed the resident�s note and agree with findings and plan as documented by Dr. Mullins.
GENERAL: well developed, well nourished, male in no apparent distress
HEENT: NC/AT
HEART: regular rate and rhythm, +S1, +S2
LUNGS : clear to auscultation bilaterally
ABDOM: soft, nontender, nondistended, + bowel sounds
EXT: no cyanosis, clubbing, or edema
NEUROLOGIC: grossly intact
Acute colitis--confirmed by CT (Mild to moderate wall thickening diffusely involving the colon)--apprec GI--cont levaquin/flagyl--advance diet to low residue--check stool cultures
Back Pain with chronic opioid dependence--chronic from T12/L1 fracture--takes Percocet 5-325 1 tab Q4hr PRN--will order
Acute on chronic anemia�normocytic--appears at baseline
Alcohol use--Drinks daily 2 beers last drink was 7 days ago was drinking prior 4-6 beers on weekend but decreased past 6 months to 2 beers
Essential Hypertension--irbesartan on hold--restart at d/c
Ex-smoker
Sleep apnea/CPAP- CPAP setting 7
Hepatitis C 2002- Treated with interferon
Osteoarthritis
DVT proph--Subcu Lovenox
Code status--Full code
Original Note:
Today's Communication/Plan
-
- As per ID, Continue IV Levaquin, IV Flagyl for infection
- As per GI, check stool c diff, culture
- Advance to low residue diet for dinner.
- Continue IV Zofran IV Dilaudid for nausea and pain
- Continue irbesartan
Assessment / Plan
Assessment / Plan
Impression:
Patient is a 75-year-old male with a PMH of HTN, GRANT, OA, Hepatitis C, who presented to the ED on 08/31/2025 with complaints of nausea, diarrhea, mid abdominal pain. He denies any recent travel or eating out. Nausea was developed on Wednesday while
patient was at work, loose stools started 2 days later on Wednesday and he described them as liquid stool mixed with formed stool, lastly pain started across his mid abdomen along with chills but no fever. Experience unintentional weight loss of 40
pounds over the last 6 months. States he did decrease his alcohol consumption on the weekend from 4�6 beers down to 2 beers daily along with weekly 2 beers daily. His last drink was 7 days ago. Also complains of insomnia over the past 4 days
which he thinks is impairing his memory to recall events. Reports father/paternal grandfather history of stomach cancer patient is unsure whether gastric or colon. History of colonic polyps, believes he had a colonoscopy 1 year ago with benign
polypectomy. He denies fever, chills, headache, sore throat, chest pain, palpitations, cough, SOB or abdominal pain. He does admits to having nausea, vomiting, headaches. Patient requested additional pain medication for his ongoing back pain. He
seems to have pain everywhere but in the abdominal area.
Plan:
#Acute colitis
- As per ID, Continue IV Levaquin, IV Flagyl for infection
- As per GI, check stool c diff, culture
- Advance to low residue diet for dinner.
- Continue IV Zofran IV Dilaudid for nausea and pain
- Follow CBC: WBC 6.3--4.9
- Follow CMP: Sodium 131--130
#Back Pain
-Ordered Percocet 5-325 1 tab Q4hr PRN
#Acute on chronic anemia�normocytic
Hgb 10.1 baseline appears 11.5--10.1--9.3
#Alcohol use
-Drinks daily 2 beers last drink was 7 days ago was drinking prior 4-6 beers on weekend but decreased past 6 months to 2 beers
#Hypertension
BP: 126/81
-Continue irbesartan
Patient reports takes aspirin 162 mg daily prophylactically
#Ex-smoker
Sleep apnea/CPAP
- CPAP setting 7
#Hemorrhoids
#Hepatitis C 2003
- Treated with interferon
#Osteoarthritis
DVT prophylaxis
Subcu Lovenox
Full code
Anticipated Discharge: 24 - 48 hours
Subjective/Interval History
-
Date of Service: September 01, 2025
Patient is a 75-year-old male with a PMH of HTN, GRANT, OA, Hepatitis C, who presented to the ED on 08/31/2025 with complaints of nausea, diarrhea, mid abdominal pain. He denies any recent travel or eating out. Nausea was developed on Wednesday while
patient was at work, loose stools started 2 days later on Wednesday and he described them as liquid stool mixed with formed stool, lastly pain started across his mid abdomen along with chills but no fever. Experience unintentional weight loss of 40
pounds over the last 6 months. States he did decrease his alcohol consumption on the weekend from 4�6 beers down to 2 beers daily along with weekly 2 beers daily. His last drink was 7 days ago. Also complains of insomnia over the past 4 days
which he thinks is impairing his memory to recall events. Reports father/paternal grandfather history of stomach cancer patient is unsure whether gastric or colon. History of colonic polyps, believes he had a colonoscopy 1 year ago with benign
polypectomy. He denies fever, chills, headache, sore throat, chest pain, palpitations, cough, SOB or abdominal pain. He does admits to having nausea, vomiting, headaches. Patient requested additional pain medication for his ongoing back pain. He
seems to have pain everywhere but in the abdominal area.
Objective Data
-
Labs:
Laboratory Results
09/01/25
07:49
WBC 4.9
Hgb 9.3 L
Hct 28.0 L
Plt Count 375
Sodium 130 L
Potassium 3.9
Chloride 105
Carbon Dioxide 22
BUN 12
Creatinine 1.0
Glucose 93
Calcium 10.1
Total Bilirubin 0.8
AST 18
ALT 18
Alkaline Phosphatase 37 L
Vital Signs:
Vital Signs
Temp Pulse Resp BP Pulse Ox
97.3 F 68 18 126/81 100
09/01/25 15:28 09/01/25 15:28 09/01/25 15:28 09/01/25 15:28 09/01/25 15:28
I&O
08/31/25 09/01/25 09/02/25
06:59 06:59 06:59
Intake Total 440 / 440
Balance 440 / 440
CT of the abdomen/pelvis with IV contrast (08/31/2025): Impression: Mild to moderate wall thickening diffusely involving the colon, compatible with colitis. This is most likely infectious colitis. Bleeding differential consideration of
inflammatory bowel disease.
Last Colonoscopy (2020): Illustrated a 20 mm polyp in cecum removed with EMR path adenoma. Was recommended to repeat in 6 months.
Review of Systems
-
History Source: Patient
All other systems: Reviewed and negative
Constitutional: Reports Weight Loss (Lost 40 pounds in 6 months) and Chills
EENT: Reports No Symptoms Reported
Respiratory: Reports No Symptoms
Cardiac: Reports No Symptoms
Abdomen/GI: Reports Nausea and Vomiting
Breast: Reports No Symptoms
Genitourinary: Reports No Symptoms
Musculoskeletal: Reports No Symptoms
Skin: Reports No Symptoms
Neuro: Reports No Symptoms
Endocrine: Reports No Symptoms
Hematologic / Lymphatic: Reports No Symptoms
Allergy / Immunology: Reports No Symptoms
Physical Exam
-
General: Well Developed and Conversant
HEENT: Normocephalic and Atraumatic
Respiratory: Clear to Auscultation
Cardiac: Regular Rhythm and S1/S2
Breast: Deferred by me
GI: Soft, Nontender, Normal Bowel Sounds and No Hepatosplenomegaly
Genito-urinary: Deferred by me
Musculoskeletal: No Clubbing, No Cyanosis and No Edema
Skin: Warm and Dry
Neuro: AO x 3, No Motor Deficits, Nonfocal/Grossly Intact and No Sensory Deficits
Psych: Calm
Data Reviewed
-
CT Scan: Report Reviewed by me and Discussed with Physician
Labs: Labs Reviewed by me and Discussed with Physician
[2025-09-01] MEDS: LOVENOX 40 MG SC (17:26)
[2025-09-01] MEDS: MELATONIN 5 MG PO (22:26)
[2025-09-01 22:40] VITALS: PULSE 69
[2025-09-01 23:19] VITALS: BP 136/79
[2025-09-02] MEDS: FLAGYL 500 MG 100 IV ×2 (04:05→11:45)
[2025-09-02] MEDS: PERCOCET 5/325 1 TABLET PO ×2 (04:07→11:48)
[2025-09-02 07:02] VITALS: BP 115/64
[2025-09-02 08:02] LABS: Hematocrit 26.6 % (39.0-52.0); Hemoglobin 9.0 g/dL (13.0-18.0); Mean Corp Hgb Conc. 33.8 g/dL (33.0-37.0); Mean Corpuscular Volume 87.2 fL (80.0-94.0); Nucleated Red Blood Cells % 0 % (-); Red Cell Dist. Width 12.4 % (11.5-14.5)
[2025-09-02 08:12] LABS: ALT (SGPT) 19 U/L (0-50); AST (SGOT) 23 U/L (17-59); Albumin 3.4 g/dl (3.5-5.0); Alkaline Phosphatase 33 U/L (38-126); Blood Urea Nitrogen 8 mg/dl (9-20); Calcium 10.0 mg/dl (8.4-10.2); Carbon Dioxide 22 mmol/L (22-30); Chloride 106 mmol/L (98-107); Estimated Creatinine Clearance 47 ml/min; Glucose 90 mg/dl (70-99); Magnesium 1.7 mg/dl (1.6-2.3); Potassium 4.1 mmol/L (3.5-5.1); Sodium 133 mmol/L (135-145); Total Protein 5.5 g/dl (6.3-8.2); eGFR > 60.00
[2025-09-02] MEDS: ASPIR LOW (ENTERIC COATED) 162 MG PO (08:59)
[2025-09-02] MEDS: ZOFRAN 4 MG IV (09:03)
--- NOTE | 2025-09-02 09:32 | W.PN.GI.CBS2 ---
Today's Communication / Plan
-
Continue low residue diet
Cont levaquin, flagyl
If tolerating diet today, OK for d/c
I told pt he need colonoscopy after 2 months both to document resolution of colitis and also for surveillance of the large cecal adenoma removed with EMR in 2020. 6 month f/u was recommended at that time
I put [facility] contact info in d/c instructions
Assessment / Plan
-
Summary: 75yo male presents with lower abd pain and diarrhea x [address] shows pancolitis. Had colonoscopy in 2020 removed 2cm adenoma w EMR, rec repeat in 6 months.
Impression:
Acute colitis, likely infectious
Hx large adenoma removed EMR 2020
Hep C treated w IFN years ago, reportedly eradicated
Subjective
Subjective
Date of Service: September 02, 2025
Did not eat much for dinner. Abd pain improved
Objective
Data Reviewed
Laboratory Data:
Laboratory Results
09/02/25 07:22
09/02/25 07:22
Laboratory Results
Magnesium 1.7 mg/dl (1.6-2.3) 09/02/25 07:22
Total Bilirubin 0.5 mg/dl (0.2-1.3) 09/02/25 07:22
AST 23 U/L (17-59) 09/02/25 07:22
ALT 19 U/L (0-50) 09/02/25 07:22
Alkaline Phosphatase 33 U/L (38-126) L 09/02/25 07:22
Vital Signs and I&O:
Vital Signs
Temp Pulse Resp BP Pulse Ox
98.8 F 68 18 115/64 98
09/02/25 07:02 09/02/25 07:02 09/02/25 07:02 09/02/25 07:02 09/02/25 07:02
I&O
09/01/25 09/02/2525
06:59 06:59 06:59
Intake Total 440 / 440 1200 / 1200
Balance 440 / 440 1200 / 1200
Physical Exam
Physical Exam
GI: Soft, Non Distended and Non Tender
[2025-09-02 14:39] VITALS: BMI 17.7
--- NOTE | 2025-09-02 14:46 | W.PN.HOSP.TC ---
Addendum entered and electronically signed by Eli Hearn MD 09/02/25 15:11:
I saw and evaluated the patient independently. I reviewed and discussed the resident�s note and agree with findings and plan as documented by Dr. Mullins.
GENERAL: well developed, well nourished, male in no apparent distress--not eating much
HEENT: NC/AT
HEART: regular rate and rhythm, +S1, +S2
LUNGS : clear to auscultation bilaterally
ABDOM: soft, nontender, nondistended, + bowel sounds
EXT: no cyanosis, clubbing, or edema
NEUROLOGIC: grossly intact
Acute colitis--confirmed by CT (Mild to moderate wall thickening diffusely involving the colon)--apprec GI--cont levaquin/flagyl-- low residue diet--pt has had NO BMs since admission
Back Pain with chronic opioid dependence--chronic from T12/L1 fracture--take Percocet 5-325 (takes HS at home) 1 tab Q4hr PRN to help with daytime pain management--will order
Acute on chronic anemia�normocytic--appears at baseline
Alcohol use--Drinks daily 2 beers last drink was 7 days ago? was drinking prior 4-6 beers on weekend but decreased past 6 months to 2 beers (nursing reports agitated today, JOHN, HTN, pain all over)--would start MSAS, does NOT need phenobarbital taper
Essential Hypertension--irbesartan on hold--restart at d/c
Ex-smoker
Sleep apnea/CPAP- CPAP setting 7
Hepatitis C 2003- Treated with interferon
Osteoarthritis
DVT proph--Subcu Lovenox
Code status--Full code
Original Note:
Today's Communication/Plan
-
Continue antibiotic regimen
Continue pain medication
Advance from low residue to full diet if tolerated
Continue to hold irbesartan��restart D/C
Started on Msass protocol
Assessment / Plan
Assessment / Plan
Impression:
Patient is a 75-year-old male with a PMH of HTN, GRANT, OA, Hepatitis C, who presented to the ED on 08/31/2025 with complaints of nausea, diarrhea, mid abdominal pain. He denies any recent travel or eating out. Nausea was developed on Wednesday while
patient was at work, loose stools started 2 days later on Wednesday and he described them as liquid stool mixed with formed stool, lastly pain started across his mid abdomen along with chills but no fever. Experience unintentional weight loss of 40
pounds over the last 6 months. States he did decrease his alcohol consumption on the weekend from 4�6 beers down to 2 beers daily along with weekly 2 beers daily. His last drink was 7 days ago. Also complains of insomnia over the past 4 days
which he thinks is impairing his memory to recall events. Reports father/paternal grandfather history of stomach cancer patient is unsure whether gastric or colon. History of colonic polyps, believes he had a colonoscopy 1 year ago with benign
polypectomy. He denies fever, chills, headache, sore throat, chest pain, palpitations, cough, SOB or abdominal pain. He does admits to having nausea, vomiting, headaches. Patient requested additional pain medication for his ongoing back pain. He
seems to have pain everywhere but in the abdominal area. Percocet 5-325 1 tab Q4hr PRN was ordered. Today (09/02/2025) Patient states that he had a miserable night. He complained of severe nausea and severe headache and his mood was very agitated.
He did not report any abdominal pain or anything to do with discomfort of the abdomen. Patient complains that his pain is not being managed properly. He reports a few episodes of vomiting and not having a bowel movement since he's been here. Once
he has a bowel movement and GI has signed off, his discharge orders will be prepped and ready.
Plan:
#Acute colitis
- As per ID, Continue IV Levaquin, IV Flagyl for infection
- As per GI, check stool c diff, culture
- Advance to low residue diet for lunch -- if tolerate--can advance to full
- Continue IV Zofran IV Dilaudid for nausea and pain
- Follow CBC: WBC 6.3--4.9--4.7
- Follow CMP: Sodium 131--130--133
#Back Pain
-Ordered Percocet 5-325 1 tab Q4hr PRN
#Acute on chronic anemia�normocytic
Hgb 10.1 baseline appears 11.5--10.1--9.3
#Alcohol use
-Drinks daily 2 beers last drink was 7 days ago was drinking prior 4-6 beers on weekend but decreased past 6 months to 2 beers
#Hypertension
BP: 115/64
-Continue irbesartan
Patient reports takes aspirin 162 mg daily prophylactically
#Ex-smoker
Sleep apnea/CPAP
- CPAP setting 7
#Hemorrhoids
#Hepatitis C 2003
- Treated with interferon
#Osteoarthritis
DVT prophylaxis
Subcu Lovenox
Full code
Anticipated Discharge: 24 - 48 hours
Subjective/Interval History
-
Date of Service: September 02, 2025
As per patient, he had a miserable night. He complained of severe nausea and severe headache and his mood was very agitated. He did not report any abdominal pain or anything to do with discomfort of the abdomen. Patient complains that his pain is
not being managed properly. He reports a few episodes of vomiting and not having a bowel movement since he's been here.
Objective Data
-
Labs:
Laboratory Results
09/02/25 09/02/25
07:22 14:28
WBC 4.7 L
Hgb 9.0 L
Hct 26.6 L
Plt Count
PT Pending
INR Pending
APTT Pending
Sodium 133 L
Potassium 4.1
Chloride 106
Carbon Dioxide 22
BUN 8 L
Creatinine 1.1
Glucose 90
Calcium 10.0
Total Bilirubin 0.5
AST 23
ALT 19
Alkaline Phosphatase 33 L
Vital Signs:
Vital Signs
Temp Pulse Resp BP Pulse Ox
98.8 F 68 18 115/64 98
09/02/25 07:02 09/02/25 07:02 09/02/25 07:02 09/02/25 07:02 09/02/25 07:02
I&O
09/01/25 09/02/25 09/03/25
06:59 06:59 06:59
Intake Total 440 / 440 1200 / 1200
Balance 440 / 440 1200 / 1200
Review of Systems
-
History Source: Patient
All other systems: Reviewed and negative
Constitutional: Reports Other (Nausea)
EENT: Reports Other (headache)
Abdomen/GI: Reports No Symptoms
Physical Exam
-
General: Well Developed and Well Nourished
HEENT: Normocephalic and Atraumatic
Respiratory: Clear to Auscultation
Cardiac: Regular Rhythm and S1/S2
Breast: Deferred by me
GI: Soft, Nontender and Nondistended
Psych: Intact Judgement/Insight
Data Reviewed
-
CT Scan: Report Reviewed by me and Discussed with Physician
Labs: Labs Reviewed by me and Discussed with Physician
[2025-09-02 14:56] LABS: INR 0.93; PT 12.8 Sec (11.4-14.6)
[2025-09-02 14:57] LABS: APTT 27.2 Sec (23.4-35.0)
[2025-09-02 15:00] VITALS: BP 159/112
[2025-09-02 15:11] LABS: GGTP 47 U/L (15-73); Magnesium 1.8 mg/dl (1.6-2.3)
[2025-09-02 15:13] LABS: Urine Character Clear (Clear)
[2025-09-02 15:21] LABS: Urine Red Blood Cell 0-2 /HPF (0-2); Urine Squamous Cell 0-2 /LPF (Few)
[2025-09-02] MEDS: LEVAQUIN 250 MG PO (16:37)
[2025-09-02] MEDS: FLAGYL 500 MG PO (16:37)
--- NOTE | 2025-09-02 16:55 | CM ---
Plan: Discharge to home today; no needs. will transport
--- NOTE | 2025-09-02 18:41 | W.DCSUMMARY ---
Addendum entered and electronically signed by Eli Hearn MD 09/02/25 19:06:
Read, reviewed, and agree. See same day progress note for additional details. Time spent coordinating care, DC planning, review of DC plan of care with resident, transition of care, review of records in EMR, med rec, consults, notes, d/w
consultants, nursing, family, and CM = 33 minutes.
To clarify: Plan was to discharge patient earlier this morning if he had tolerated his low residue diet. He stated that he thought he would need 1 more day. So discharge was postponed. After evaluating him with the resident team, nursing reports
that he became very agitated and has been all morning, complaining of headaches, complaining of pain. Given his alcohol history, MSAS protocol was started which the patient took offense to. He was dressed and ready to leave. I did ask him if he
felt that he was ready to go since the plan was to discharge him earlier that morning anyway, but reminded him that he wanted another day. He states that his last drink was over 7 days ago and does not have any withdrawal symptoms. He is feeling
much improved and is ready for discharge. We did discharge him with levofloxacin and metronidazole to complete a 10-day course.
Original Note:
Discharge Summary
Discharge Data
Date of Admission: 08/31/25
Date of Discharge: 09/02/25
-
Pending Results: No
Hospital Course
Patient is a 75-year-old male with a PMH of HTN, GRANT, OA, Hepatitis C, who presented to the ED on 08/31/2025 with complaints of nausea, diarrhea, mid abdominal pain. He denies any recent travel or eating out. Nausea was developed on Wednesday while
patient was at work, loose stools started 2 days later on Wednesday and he described them as liquid stool mixed with formed stool, lastly pain started across his mid abdomen along with chills but no fever. Experience unintentional weight loss of 40
pounds over the last 6 months. States he did decrease his alcohol consumption on the weekend from 4�6 beers down to 2 beers daily along with weekly 2 beers daily. His last drink was 7 days ago. Also complains of insomnia over the past 4 days
which he thinks is impairing his memory to recall events. Reports father/paternal grandfather history of stomach cancer patient is unsure whether gastric or colon. History of colonic polyps, believes he had a colonoscopy 1 year ago with benign
polypectomy. He denies fever, chills, headache, sore throat, chest pain, palpitations, cough, SOB or abdominal pain. He does admits to having nausea, vomiting, headaches. Patient requested additional pain medication for his ongoing back pain. He
seems to have pain everywhere but in the abdominal area. Percocet 5-325 1 tab Q4hr PRN was ordered. Yesterday (09/02/2025) Patient states that he had a miserable night. He complained of severe nausea and severe headache and his mood was very
agitated. He did not report any abdominal pain or anything to do with discomfort of the abdomen. Patient complains that his pain is not being managed properly. He reports a few episodes of vomiting and not having a bowel movement since he's been
here. Once he has a bowel movement and GI has signed off, his discharge orders will be prepped and ready. Today (09/03/2025), Patient was even more agitated. He stated that he had really bad nausea, vomiting and headache last night that left him
sleepless. Patient seems to be going through some withdrawal symptoms so he was put on the MSASS protocol, to which he refused and was D/C today. His necessary medications were switched to their oral version and sent to his pharmacy and patient was
discharged from the hospital this afternoon.
Discharge Plan
-
Patient Disposition: Home (Routine Discharge)
Discharge Diagnosis/Procedures: colitis
Condition: Good
Diet: Low Residue
Additional Diets: keep on low residue diet as long as you are on the antibiotics
Activity: As tolerated
Driving Restrictions: As prior to admission
Bathing Restrictions: None
Referrals:
Grady Bautista MD [Active, Gastroenterology] - in one to two weeks
Alcon Hernandez MD [Family Provider, Internal Medicine] - in less than 1 week
Prescriptions:
New
levofloxacin 250 mg Tablet
250 mg PO DAILY Qty: 10 0RF
metronidazole 500 mg Tablet
500 mg PO TID 10 Days Qty: 30 0RF
oxycodone-acetaminophen 5-325 mg Tablet
1 tab PO Q4HPRN PRN (Reason: severe pain) Qty: 0 0RF
folic acid 1 mg Tablet
1 mg PO DAILY Qty: 0 0RF
thiamine mononitrate (vit B1) 100 mg Tablet
100 mg PO BID Qty: 0 0RF
Continued
multivitamin 1 EACH tablet
1 ea PO DAILY
irbesartan 300 MG tablet
300 mg PO QPM
aspirin
162 mg PO DAILY
Discharge Orders:
Discharge Patient (As Directed); Ordered 09/02/25
Ordered By: Eli Hearn
Discharge Date and Time
Discharge Date/Time: 09/02/25 17:55
Print Language: GUAMANIAN
== END 2025-09-02 17:55 | disposition home or self-care (01) ==
LOC: 4 WEST ACU 17:03
PROVIDERS: Clinical Nurse Specialist Family Health; ADMITTING PHYSICIAN Internal Medicine; ATTENDING PHYSICIAN Internal Medicine; CONSULT PHYSICIAN Specialist; EMERGENCY PHYSICIAN Emergency Medicine; FAMILY PHYSICIAN Internal Medicine
PROC: 5A09357 Assistance with Respiratory Ventilation, Less than 24 Consecutive Hours, Continuous Positive Airway Pressure (ICD-10-PCS; 2025-08-31)
DX: K52.9 Noninfective gastroenteritis and colitis, unspecified (principal); D64.9 Anemia, unspecified; F10.10 Alcohol abuse, uncomplicated; I10 Essential (primary) hypertension; Z87.891 Personal history of nicotine dependence; Z79.899 Other long term (current) drug therapy; K64.9 Unspecified hemorrhoids; B19.20 Unspecified viral hepatitis C without hepatic coma; M19.90 Unspecified osteoarthritis, unspecified site; Z79.82 Long term (current) use of aspirin; G47.00 Insomnia, unspecified; G47.33 Obstructive sleep apnea (adult) (pediatric); M54.9 Dorsalgia, unspecified; F11.20 Opioid dependence, uncomplicated
CPT/HCPCS: 74177; 80053; 80306; 80307; 81003; 81015; 82010; 82077; 82977; 83735; 84100; 84443; 85025; 85610; 85730; 93005; 94660; 96365; 96375; 99285; G0378; Q9967